=== PATIENT | male | born 1955 | race Caucasian/White ===

== ENCOUNTER 2020-05-27 07:12 | Outpatient (CLI) | payer MEDICARE ==
[~2020-05-27 07:12] MED LIST: MECL-76 PO; OMEP-110 PO
== END 2020-05-27 23:59 | disposition home or self-care (01) ==
LOC: ROC 07:12
PROVIDERS: ATTEND Radiology Radiation Oncology
DX: C34.12 Malignant neoplasm of upper lobe, left bronchus or lung (principal)
CPT/HCPCS: G0463

== ENCOUNTER 2020-07-02 09:28 | Emergency (ER) | payer MEDICARE ==
[~2020-07-02] VITALS: Ht 177.8 cm; Wt 74.3 kg
--- NOTE | 2020-07-02 09:45 | NUR ---
daughter Madelaine Stewart, age 38 at bedside to assist with translation,
--- NOTE | 2020-07-02 09:51 | NUR ---
Note undone in EDM - 07/02/20 at 1010 by NATHANAEL [employer] program specialist used pt BIB daughter for evaluaiton after expierincing L sided CP radiating to L arm with SOB yesterday. pt denies Cp or SOB at this time. pt went to his radiation treatment this AM and was told to come here after his treatment was completed when he told the staff that he was having CP yesterday. pt is currently undergoing tx for L lung cancer with radiation and chemotherapy. last chemo dose was 06/19/20 pt is calm and cooperative, pink warm and dry. no c/o at this time. ambulatory. pt daughter at bedside to assist with translatio and pt states that he is comfortable having his daughter translate for him pt and daughter at bedside updated on POC
--- NOTE | 2020-07-02 09:51 | NUR ---
[employer] lang interpreter used for patient assessment pt BIB daughter for evaluation of L sided CP radiating to the L arm with SOB yesterday. pt denies CP or SOB at this time. 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 pt reports that he went to radiation treatment this AM for L lung cancer an was told to come to the ER for eval after treatment because of the CP he had yesterday. pt is currently recieving chemotherapy as well and his last dose was 06/19/20. pt is currently resting on gurney in no apparent distress, no complaints. pt is calm and cooperative, pink warm and dry. ambulatory and JOSUE without assist. pt daughter at bedside to assist pt with translation and pt states that he is comfortable having his daughter continue totranslate for him pt and daughter at bedside updated on POC
[2020-07-02] MEDS ORDERED: ASPIRIN 81 MG TABLET CHEW PO ONE (10:00)
--- NOTE | 2020-07-02 10:14 | NUR ---
lab has been to bedside to draw
[2020-07-02] MEDS ORDERED: ASPIRIN 81 MG TABLET CHEW ONE (10:19)
--- NOTE | 2020-07-02 10:24 | NUR ---
CXR at bedside
[2020-07-02 10:37] LABS: MEAN CORPUSCULAR HEMOGLOBIN 31.4 pg (27.5-34.5); MEAN PLATELET VOLUME 7.6 fL (7.4-10.4); PLATELET COUNT 356 x10^3/uL (130-400); RED CELL DISTRIBUTION WIDTH 14.1 % (9.4-14.8)
[2020-07-02 10:45] LABS: ALBUMIN 3.3 g/dL (3.4-5.0); ANION GAP 4 mmol/L (5-15); CALCIUM 8.3 mg/dL (8.5-10.1); CHLORIDE 111 mmol/L (98-107)
[2020-07-02 10:51] LABS: ALANINE AMINOTRANSFERASE 23 U/L (12-78); ALKALINE PHOSPHATASE 89 U/L (45-117); BILIRUBIN,TOTAL 0.2 mg/dL (0.2-1.0); CREATININE 0.77 mg/dL (0.7-1.3); TOTAL PROTEIN 6.6 g/dL (6.4-8.2); TROPONIN I < 0.015 ng/mL (0.000-0.045)
[2020-07-02 11:06] LABS: MD YES
[2020-07-02 11:08] LABS: <PLATELET ESTIMATE> ADEQUATE; <PLT MORPHOLOGY> NORMAL PLT MORPH; <RBC MORPHOLOGY> NORMAL; BAND#(MANUAL) 0.03 x10^3/uL; BANDS%(MANUAL) 1 % (0-7); EOS#(MANUAL) 0.03 x10^3/uL (0.0-0.4); EOS% (MANUAL) 1 % (1-7); LYMPHS% (MANUAL) 28 % (22-44); MONOS#(MANUAL) 0.48 x10^3/uL (0.3-2.7); MONOS% (MANUAL) 19 % (2-9); SEG#(MANUAL) 1.28 x10^3/uL (1.8-6.8); SEGS% (MANUAL) 51 % (42-75)
--- NOTE | 2020-07-02 11:20 | NUR ---
no changes. pt resting in position of comfort. chart up for MD recheck
--- NOTE | 2020-07-02 11:45 | NUR ---
MD has been to bedside for recheck. pt to be D/C
[2020-07-02 12:01] VITALS: BP 145/67
== END 2020-07-02 12:05 | disposition home or self-care (01) ==
LOC: ED 10:59
DX: R07.89 Other chest pain (principal); C34.90 Malignant neoplasm of unspecified part of unspecified bronchus or lung; M79.602 Pain in left arm; R00.1 Bradycardia, unspecified; R53.83 Other fatigue; F17.200 Nicotine dependence, unspecified, uncomplicated
CPT/HCPCS: 36415; 71045; 80053; 84484; 85025; 93005; 99285

== ENCOUNTER 2020-07-11 07:49 | Outpatient (CLI) | payer MEDICARE | END 2020-07-11 23:59 | disposition home or self-care (01) | LOC: ROC 07:49 | PROVIDERS: ATTEND Radiology Radiation Oncology | DX: C34.12 Malignant neoplasm of upper lobe, left bronchus or lung (principal); R53.83 Other fatigue; Z79.899 Other long term (current) drug therapy; Z87.891 Personal history of nicotine dependence | CPT/HCPCS: G0463 ==

== ENCOUNTER → 2020-10-10 | Outpatient (CLI) | payer MEDICARE, MEDICAID ==
[~2020-10-10] MED LIST changes: +GADOTERATE 7.5 MMOL/15ML SYR ONE
== END | disposition home or self-care (01) ==
LOC: RAD 10:34
PROVIDERS: ATTEND Radiology Radiation Oncology
DX: C34.12 Malignant neoplasm of upper lobe, left bronchus or lung (principal)
CPT/HCPCS: 70553; A9575

== ENCOUNTER → 2020-10-14 | Outpatient (CLI) | payer MEDICARE, MEDICAID ==
[~2020-10-14] MED LIST changes: -GADOTERATE 7.5 MMOL/15ML SYR ONE
== END | disposition home or self-care (01) ==
LOC: ROC 07:28
PROVIDERS: ATTEND Radiology Radiation Oncology
DX: C34.12 Malignant neoplasm of upper lobe, left bronchus or lung (principal); C79.31 Secondary malignant neoplasm of brain; Z79.899 Other long term (current) drug therapy; Z87.891 Personal history of nicotine dependence
CPT/HCPCS: G0463

== ENCOUNTER → 2020-11-13 | Outpatient (CLI) | payer MEDICARE, MEDICAID | END | disposition home or self-care (01) | LOC: ROC 08:10 | PROVIDERS: ATTEND Radiology Radiation Oncology | DX: C34.12 Malignant neoplasm of upper lobe, left bronchus or lung (principal); C79.31 Secondary malignant neoplasm of brain; Z79.899 Other long term (current) drug therapy; Z87.891 Personal history of nicotine dependence | CPT/HCPCS: G0463 ==

== ENCOUNTER → 2020-12-20 | Outpatient (CLI) | payer MEDICARE, MEDICAID | END | disposition home or self-care (01) | LOC: CFH 11:00 | PROVIDERS: ATTEND Internal Medicine Cardiovascular Disease | DX: I35.8 Other nonrheumatic aortic valve disorders (principal); I10 Essential (primary) hypertension; E78.5 Hyperlipidemia, unspecified; Z72.0 Tobacco use | CPT/HCPCS: 93306 ==